=== PATIENT | female | born 1995 | race Caucasian/White ===

== ENCOUNTER 2017-04-30 02:28 | Emergency (ER) | payer OTHER ==
[~2017-04-30] VITALS: Ht 175.3 cm; Wt 92.5 kg
== END 2017-04-30 04:06 | disposition home or self-care (01) ==
LOC: ED 02:28
DX: R10.31 Right lower quadrant pain (principal); Z88.8 Allergy status to other drugs, medicaments and biological substances
CPT/HCPCS: 74177; 80053; 81001; 83690; 85025; 99284; Q9967

== ENCOUNTER 2018-12-09 19:52 | Emergency (ER) | payer SELFPAY ==
[~2018-12-09] VITALS: Ht 175.3 cm; Wt 79.2 kg
--- NOTE | 2018-12-10 07:20 | EKG ---
[facility] [address] [facility] [place], [place] [address] Signed Sinus tachycardia Otherwise normal ECG When compared with ECG of 12-SEP-2018 00:42, DE interval has decreased Confirmed by FARIBA DEWITT MD ([id number]) on 12/10/2018 7:20:28 AM Electronically Signed By: FARIBA DEWITT MD 12/10/18 0720 PATIENT NAME: HELEN RALPH KIRBY Electrocardiogram DATE OF : [birth year] PHYSICIAN: FARIBA DEWITT MD REPORT #: [id number] REPORT IS CONFIDENTIAL AND NOT TO BE RELEASED WITHOUT AUTHORIZATION
== END 2018-12-09 21:58 | disposition home or self-care (01) ==
LOC: ED 19:52
DX: R20.0 Anesthesia of skin (principal); T40.7X5A Adverse effect of cannabis (derivatives), initial encounter; F32.9 Major depressive disorder, single episode, unspecified; Z88.8 Allergy status to other drugs, medicaments and biological substances
CPT/HCPCS: 80053; 81001; 85025; 93005; 93010; 96360; 99284-25; J7030

== ENCOUNTER 2019-02-06 11:12 | Emergency (ER) | payer SELFPAY ==
[~2019-02-06] VITALS: Ht 175.3 cm; Wt 85.5 kg
== END 2019-02-06 11:44 | disposition left against medical advice (07) ==
LOC: ED 11:12
DX: N93.9 Abnormal uterine and vaginal bleeding, unspecified (principal)

== ENCOUNTER 2024-03-18 09:02 | Inpatient (IN) | payer OTHER ==
--- NOTE | ~2024-03-18 | OR ---
[facility] [address] [place], [place] [address] Draft DATE OF OPERATION: 03/21/2024 SURGEON: Odalys Regalado MD LICENSE CLERK: Rhoades. PREOPERATIVE DIAGNOSIS: Term , desire for primary section, desire for risk reducing salpingectomy. POSTOPERATIVE DIAGNOSIS: Term , desire for primary section, desire for risk reducing salpingectomy, delivered. PROCEDURE: Primary section with low segment transverse uterine incision, para 2, SAB 2, who was admitted at 39 and 1/7th weeks for primary section per her request. She was delivered of a little boy via lower segment transverse uterine incision from the ROP position with Apgars of 9 and 9 and weight of 7 pounds 15 ounces. The uterus, tubes, ovaries, and placenta appeared normal. DESCRIPTION OF PROCEDURE: The patient was prepped and draped in the supine position. A Pfannenstiel skin incision was made and carried down through the fascia. The incision was extended laterally. The inferior and superior fascial flaps were then created. The muscles were bluntly divided and the peritoneum opened bluntly and the incision extended bluntly. The Adi retractor was then placed. The uterine incision was made at the upper aspect of the peritoneal reflection. The baby was delivered with the above findings and handed out to the pediatric staff in attendance. The placenta was expressed and the uterine cavity wiped with a lap tape to assure no remaining fragments. The edges of the incision were identified and the uterus was closed in 2 layers using 0 Monocryl. The first layer was a running locking stitch. The second was a vertical imbricating stitch. An additional suture was required near the left angle for control of bleeding. The abdomen was irrigated and inspected and the incision appeared to be hemostatic. The patient's left tube was then grasped with Tuttle clamps and the mesosalpinx was serially coagulated and divided using the hand-held bipolar device. This was carried from the fimbriated end to the cornu and excised. Good hemostasis was noted. The same procedure was carried out on the right side again with good hemostasis. Following this, the Adi retractor was removed after verifying hemostasis of the uterine incision. The PATIENT NAME: HELEN MACDONALD OPERATIVE REPORT DATE OF : [birth year] REPORT #: [id number] PHYSICIAN: ODALYS REGALADO MD PCP: CIRA GUZMAN PA-C REPORT IS CONFIDENTIAL AND NOT TO BE RELEASED WITHOUT AUTHORIZATION [facility] [address] [place], [place] [address] Draft peritoneum was identified and closed with a running suture of 3-0 Vicryl. The muscles were brought together with interrupted sutures of 0 Vicryl. Bleeding was controlled on the muscle layers using the bipolar as well as the monopolar cautery. This area was irrigated, inspected and good hemostasis was noted. Because of the number of the small vessels, however, Jessica was placed over the muscles. The fascia was then closed from each angle to the midline with a running suture of 0 Vicryl. The subcu was reapproximated with interrupted sutures of 3-0 Vicryl after assuring hemostasis. The skin was closed with edgar. All sponge and needle counts were correct. She tolerated the procedure well and was taken to the recovery room in good condition. MD DAKOTA Mai/MODL /[id number] Copies: ~ PATIENT NAME: HELEN MACDONALD OPERATIVE REPORT DATE OF : [birth year] REPORT #: [id number] PHYSICIAN: ODALYS REGALADO MD PCP: CIRA GUZMAN PA-C REPORT IS CONFIDENTIAL AND NOT TO BE RELEASED WITHOUT AUTHORIZATION
[2024-03-20] MEDS ORDERED: LACTATED RINGER'S 2,000 ML IV PRN (15:45)
[2024-03-20] MEDS ORDERED: LACTATED RINGER'S 1,000 ML IV SCH (15:45)
[2024-03-21] MEDS ORDERED: LACTATED RINGER'S 1,000 ML IV SCH ×2 (05:00→08:33)
[2024-03-21] MEDS ORDERED: LACTATED RINGER'S 2,000 ML IV PRN (05:00)
[2024-03-21] MEDS ORDERED: LIDOCAINE 2% VISCOUS 6 ML SYR TOP ONE ×2 (05:15→08:30)
[2024-03-21 06:15] LABS: HEMATOCRIT 35.3 % (35.0-50.0); HEMOGLOBIN 11.9 g/dL (12.0-18.0); MCHC 33.7 g/dl (30-36); MCV 88.9 fl (81-99); RBC 3.97 M/ul (4.3-5.7); RDW 13.9 (10.5-15.0)
[2024-03-21] MEDS ORDERED: BUPIVACAINE 0.75% IN DEXTROSE 2 ML AMP ONE (06:45)
[2024-03-21] MEDS ORDERED: MORPHINE SULFATE 1 MG/ML VIAL ONE (06:45)
[2024-03-21] MEDS ORDERED: ondansetron HCL 4 MG/2 ML VIAL ONE (06:45)
[2024-03-21] MEDS ORDERED: OXYTOCIN 10 UNITS/ML VIAL ONE (06:45)
[2024-03-21] MEDS ORDERED: fentaNYL citrate 100 MCG/2 ML VIAL ONE (06:45)
[2024-03-21] MEDS ORDERED: LIDOCAINE HCL 2% 5 ML SDV ONE (06:45)
[2024-03-21] MEDS ORDERED: Ropivacaine HCl 0.5% 30 ML VIAL ONE (06:50)
[2024-03-21] MEDS ORDERED: DEXAMETHASONE SOD PHOS 4 MG/ML VIAL ONE (06:50)
[2024-03-21] MEDS ORDERED: SODIUM CHLORIDE 0.9% 20 ML IV ONE (06:50)
[2024-03-21] MEDS ORDERED: CEFAZOLIN SODIUM 2 GM/20 ML SYR IV SCH (07:00)
[2024-03-21] MEDS ORDERED: SOD+POT BICARB/CITRIC ACID 2 EA TABLET.EFF PO SCH (07:00)
[2024-03-21 07:10] LABS: AMPHETAMINES, URINE NEGATIVE (NEGATIVE); BARBITURATES, URINE NEGATIVE (NEGATIVE); BENZODIAZEPINE, URINE NEGATIVE (NEGATIVE); BUPRENORPHINE, URINE NEGATIVE (NEGATIVE); CANNABINOID, URINE NEGATIVE (NEGATIVE); COCAINE, URINE NEGATIVE (NEGATIVE); ECSTASY, URINE NEGATIVE (NEGATIVE); FENTANYL, URINE NEGATIVE (NEGATIVE); METHADONE, URINE NEGATIVE (NEGATIVE); OPIATES, URINE NEGATIVE (NEGATIVE); OXYCODONE, URINE NEGATIVE (NEGATIVE); PHENCYCLIDINE, URINE NEGATIVE (NEGATIVE)
[2024-03-21 07:25] LABS: ABO O
[2024-03-21 07:26] LABS: ANTIBODY SCREEN NEGATIVE; RH POSITIVE
[2024-03-21] MEDS ORDERED: ondansetron HCL 4 MG/2 ML VIAL IV PRN ×2 (07:45→08:30)
[2024-03-21] MEDS ORDERED: PROCHLORPERAZINE EDISYLATE 10 MG/2 ML VIAL IV PRN ×2 (07:45→08:30)
[2024-03-21] MEDS ORDERED: HYDROmorphone HCL 1 MG/ML SYR IV PRN (07:45)
[2024-03-21] MEDS ORDERED: NALOXONE HCL 0.4 MG SYR IV PRN (07:45)
[2024-03-21] MEDS ORDERED: diphenhydrAMINE HCL 50 MG/ML VIAL IV PRN (07:45)
[2024-03-21] MEDS ORDERED: KETOROLAC TROMETHAMINE 30 MG/ML VIAL IV PRN (07:45)
[2024-03-21] MEDS ORDERED: LACTATED RINGER'S 1,000 ML IV ONE (08:09)
[2024-03-21] MEDS ORDERED: PROMETHAZINE HCL 25 MG TAB PO PRN (08:30)
[2024-03-21] MEDS ORDERED: bisacodyL 10 MG SUPP PR PRN (08:30)
[2024-03-21] MEDS ORDERED: OXYTOCIN/0.9 % SODIUM CHLORIDE 500 ML IV SCH (08:30)
[2024-03-21] MEDS ORDERED: OXYCODONE HCL 5 MG TAB PO PRN (08:30)
[2024-03-21] MEDS ORDERED: KETOROLAC TROMETHAMINE 30 MG/ML VIAL IV SCH (08:30)
[2024-03-21] MEDS ORDERED: METOCLOPRAMIDE HCL 10 MG/2 ML SDV IV PRN (08:30)
[2024-03-21] MEDS ORDERED: PROMETHAZINE HCL 25 MG SUPP PR PRN (08:30)
[2024-03-21] MEDS ORDERED: SENNOSIDES/DOCUSATE 1 EA TAB PO SCH (09:00)
[2024-03-21 09:22] VITALS: BP 94/57
--- NOTE | 2024-03-21 09:24 | NUR ---
03/21/24 0924 Mercy Navarro 0893 PT ARRIVED IN PACU WIDE AWAKE WITH NO C/O'S. BILAT TAP BLOCKS DONE BY ANESTHESIA. FBC RN WITH BABY IN ROOM. 0845 MOM BREAST FEEDING BABY WITH HELP FROM FBC RN. FOB AT BEDSIDE. 0903 REPORT GIVEN TO FBC RN. BED PLUGGED IN.
[2024-03-21] MEDS ORDERED: SIMETHICONE 125 MG TABLET CHEWABLE PO SCH (11:00)
[2024-03-21] MEDS ORDERED: ACETAMINOPHEN 500 MG TAB PO SCH (12:00)
[2024-03-21] MEDS ORDERED: DULOXETINE HCL 30 MG CAP PO SCH (21:00)
[2024-03-22 05:27] LABS: HEMATOCRIT 30.7 % (35.0-50.0); HEMOGLOBIN 10.5 g/dL (12.0-18.0); MCHC 34.3 g/dl (30-36); MCV 87.5 fl (81-99); RBC 3.51 M/ul (4.3-5.7); RDW 13.7 (10.5-15.0)
[2024-03-22] MEDS ORDERED: CEFAZOLIN SODIUM 2 GM/20 ML SYR IV SCH (07:00)
[2024-03-22] MEDS ORDERED: SOD+POT BICARB/CITRIC ACID 2 EA TABLET.EFF PO SCH (07:00)
--- NOTE | 2024-03-22 07:30 | PR ---
[facility] [address] [facility] [place], [place] [address] Signed PP Progress Notes Datetime Report Generated by CPN: 03/22/2024 07:30 SUBJECTIVE: [id number] Pain: Within Normal Limits Nausea/Vomiting: Denies Flatus: No Vital Signs: [id number] Vital Signs: Reviewed; Within Normal Limits EXAM: Ongoing Cardiovascular: Normal Respiratory: Normal Abdomen/Uterus: Abnormal Lochia: Normal Vulva/Perineum: Not Done Breasts: Not Done CVA Tenderness: Not Done Extremities: Normal Incision: Normal Progress: Normal Exam Comments: Abdomen with active BS. Fundus firm, NT @ U-2. H/H 10.5/30.7, WBC 12.5, plat 181k IMPRESSION/PLAN/PROCEDURES: [id number] Impression: Normal Progression Other Plans: ambulate, shower Procedures: None Progress Notes: Doing well. Will increase activity and shower. Signing Physician: Hipolito Regalado MD Copies: ~ *Electronically Signed* 03/22/24729 HIPOLITO REGALADO MD PATIENT NAME: TORRESDAYLANNE MAY PROGRESS NOTE DATE OF : [birth year] PHYSICIAN: HIPOLITO REGALADO MD RPT #: [id number] REPORT IS CONFIDENTIAL AND NOT TO BE RELEASED WITHOUT AUTHORIZATION
[2024-03-22] MEDS ORDERED: IBUPROFEN 800 MG TAB PO SCH ×2 (08:00→14:00)
--- NOTE | 2024-03-23 08:18 | PR ---
[facility] [address] [place], [place] [address] Signed PP Progress Notes Datetime Report Generated by CPN: 03/23/2024 08:18 SUBJECTIVE: [id number] Pain: Within Normal Limits Nausea/Vomiting: Denies Flatus: Yes Vital Signs: [id number] Vital Signs: Reviewed; Within Normal Limits EXAM: Ongoing Cardiovascular: Not Done Respiratory: Not Done Abdomen/Uterus: Abnormal Lochia: Normal Vulva/Perineum: Not Done Breasts: Not Done CVA Tenderness: Not Done Extremities: Normal Incision: Normal Progress: Normal Exam Comments: Abdomen with active BS. Fundus firm, NT @ U-2. Incision clean and intact. Sl bruising above incision. IMPRESSION/PLAN/PROCEDURES: [id number] Impression: Normal Progression Plan: Remove Richard; Discharge Other Plans: ambulate, shower Procedures: None Progress Notes: Doing well. Reports moods doing OK so far. She is ready for D/C. Signing Physician: Odalys Regalado MD Copies: ~ *Electronically Signed* 03/23/24817 ODALYS REGALADO MD PATIENT NAME: HELEN MACDONALD PROGRESS NOTE DATE OF : [birth year] PHYSICIAN: ODALYS REGALADO MD RPT #: [id number] REPORT IS CONFIDENTIAL AND NOT TO BE RELEASED WITHOUT AUTHORIZATION
--- NOTE | 2024-03-24 12:10 | PATH ---
[facility] [address] [place], [place] [address] Signed SPECIMEN(S): A FALLOPIAN TUBES, BILATERAL SPECIMEN SOURCE: A. FALLOPIAN TUBES, BILATERAL CLINICAL HISTORY: Approved salpingectomy FINAL PATHOLOGIC DIAGNOSIS: Bilateral fallopian tubes: - Two segments of benign fimbriated oviduct. JVR:clv MICROSCOPIC EXAMINATION: Histologic sections of all submitted blocks are examined by light microscopy. These findings, together with the gross examination, support the pathologic diagnosis. GROSS DESCRIPTION: The specimen, labeled and designated "Winston, " and designated on the requisition "bilateral fallopian tubes," is received in formalin and consists of 2 undesignated red-brown fimbriated fallopian tube segments (8.5 cm in length and ranging in diameter from 0.4 to 1.3 cm, and 8.0 cm in length and ranging in diameter from 0.4 to 1.2 cm). One fallopian tube segment is arbitrarily inked blue. Both segments are sectioned to reveal lynch-pink cut surfaces with a pinpoint lumen. Production Control Manager sections of each segment are submitted in cassette A1-A2. AC (under the direct supervision of a pathologist) The Gross Description was prepared using a voice recognition system. The report was reviewed for accuracy; however, sound-alike word errors, addition and/or deletions may occur. If there is any question about this report, please contact Client Services. PERFORMING LABORATORY: Technical component was performed by [employer], [address] [place] [id number] (CLIA# [id number]). Professional interpretation was performed by [facility], [address] [place] [id number] (CLIA#: [id number]). Diagnostician: Rishi Couch MD Pathologist PATIENT NAME: HELEN WINSTON PATHOLOGY DATE OF : [birth year] REPORT #: [id number] PHYSICIAN: [facility] PCP: CIRA GUZMAN PA-C REPORT IS CONFIDENTIAL AND NOT TO BE RELEASED WITHOUT AUTHORIZATION [address], [place] [address] Signed Electronically Signed 03/24/2024 Copies: ~ PATIENT NAME: HELEN WINSTON PATHOLOGY DATE OF : [birth year] REPORT #: [id number] PHYSICIAN: [facility] PATHOLOGY PCP: CIRA GUZMAN PA-C REPORT IS CONFIDENTIAL AND NOT TO BE RELEASED WITHOUT AUTHORIZATION
== END 2024-03-23 12:00 | disposition home or self-care (01) | DRG 785 ==
LOC: FBC 03-21 04:54
PROVIDERS: ADMIT Obstetrics & Gynecology; ATTEND Obstetrics & Gynecology
PROC: 0UB70ZZ Excision of Bilateral Fallopian Tubes, Open Approach (ICD-10-PCS; 2024-03-21)
PROC: 10D00Z1 Extraction of Products of Conception, Low, Open Approach (ICD-10-PCS; principal; 2024-03-21 07:30)
DX: O80 Encounter for full-term uncomplicated delivery (principal); Z37.0 Single live birth; Z3A.39 39 weeks gestation of pregnancy; Z30.2 Encounter for sterilization
CPT/HCPCS: 01961; 36415; 76942; 80307; 85027; 86850; 86900; 86901; 88302; A9270; J0690; J1100; J1885; J2001; J2274; J2405; J2590; J2795; J3010; J7121